=== PATIENT | female | born 1985 | race Caucasian/White ===

== ENCOUNTER 2018-08-17 11:51 | Emergency (ER) | payer OTHER ==
[~2018-08-17] VITALS: Ht 172.7 cm; Wt 144.2 kg
[~2018-08-17 11:51] MED LIST: ACETAMINOPHEN-1 EAC1 PO; AMITRIPTYLINE H10 M1 PO; AMOXICILLIN500 M1 PO; AMOXIL 875 MG875 M1 PO; AUGMENTIN 875875 MG PO; CLEOCIN HCL300 MG PO; CYMBALTA20 MG PO; IBUPROFEN 800800 M1 PO; NOHOMEMEDICATIONS; OXYCODONE HCL5 MG PO; PERCOCET 5-3251 EACH PO; TOPAMAX25 M1 PO
[2018-08-17 12:52] LABS: URINE BILIRUBIN NEGATIVE (Negative); URINE BLOOD NEGATIVE (Negative); URINE CLARITY CLEAR; URINE COLOR YELLOW; URINE GLUCOSE-RANDOM NEGATIVE (Negative); URINE KETONES NEGATIVE (Negative); URINE LEUKOCYTES-REFLEX NEGATIVE (Negative); URINE NITRITE-REFLEX NEGATIVE (Negative); URINE PROTEIN NEGATIVE (Negative); URINE SPECIFIC GRAVITY 1.025 (1.005-1.030); URINE UROBILINOGEN 0.2 E.U./dl (0.2-1.0)
[2018-08-17 13:20] LABS: ABSOLUTE BASOPHILS 0.1 thou/uL (0.0-0.2); ABSOLUTE EOSINOPHILS 0.6 thou/uL (0.0-0.7); ABSOLUTE LYMPHOCYTES 2.7 thou/uL (0.8-5.3); ABSOLUTE MONOCYTES 0.6 thou/uL (0.0-1.2); ABSOLUTE NEUTROPHILS 6.3 thou/uL (1.6-8.1); BASOPHILS 1.3 %; EOSINOPHILS 5.9 %; HEMATOCRIT 38.7 % (37.0-47.0); HEMOGLOBIN 12.8 gm/dL (12.0-15.0); LYMPHOCYTES 26.2 %; MCH 27.1 pg (26.0-34.0); MCHC 33.2 g/dL (28.0-37.0); MCV 81.7 fL (80.0-100.0); MONOCYTES 5.5 %; MPV 9.1 fl. (7.2-11.1); NUCLEATED RBCS 0 /100WBC; PLATELET COUNT* 176 thou/uL (150-400); POLYS 61.1 %; RBC 4.73 mil/uL (4.20-5.00); RDW-CV 16.4 % (10.5-14.5); WBC 10.4 thou/uL (4.0-11.0)
[2018-08-17 13:26] LABS: CALCIUM 8.4 mg/dL (8.5-10.1); CREATININE 0.7 mg/dL (0.6-1.3); POTASSIUM 3.7 mmol/L (3.5-5.1)
[2018-08-17 13:28] LABS: INR 0.9; PROTIME 9.5 Seconds (9.20-11.50)
[2018-08-17 13:31] LABS: ALBUMIN 2.8 g/dL (3.4-5.0); TOTAL BILIRUBIN 0.2 mg/dL (<0.1-1.0); TOTAL PROTEIN 7.2 g/dL (6.4-8.2)
[2018-08-17 16:09] VITALS: BP 105/62
[2018-08-17 16:57] LABS: CSF GLUCOSE 62 mg/dl (40-70); CSF PROTEIN 46.8 mg/dl (15-45)
[2018-08-17 17:28] LABS: VOLUME 13 ml
[2018-08-17 18:01] LABS: CSF CLARITY CLEAR; CSF COLOR COLORLESS
[2018-08-17 18:02] LABS: CSF RBC 317 /mm3; CSF WBC 4 /mm3 (0-10)
== END 2018-08-17 16:12 | disposition left against medical advice (07) ==
LOC: M.ERS 11:51
PROVIDERS: Personal Emergency Response Attendant
DX: R51 Headache (principal); F41.9 Anxiety disorder, unspecified; F31.9 Bipolar disorder, unspecified; E03.9 Hypothyroidism, unspecified; G89.29 Other chronic pain; M54.9 Dorsalgia, unspecified; J45.909 Unspecified asthma, uncomplicated; I10 Essential (primary) hypertension; F17.210 Nicotine dependence, cigarettes, uncomplicated; Z88.5 Allergy status to narcotic agent; Z88.6 Allergy status to analgesic agent; Z88.8 Allergy status to other drugs, medicaments and biological substances

== ENCOUNTER 2018-09-09 19:07 | Emergency (ER) | payer OTHER ==
[~2018-09-09] VITALS: Ht 172.7 cm; Wt 131.5 kg
[2018-09-09 19:56] LABS: ABSOLUTE EOSINOPHILS 0.5 thou/uL (0.0-0.7); ABSOLUTE LYMPHOCYTES 3.5 thou/uL (0.8-5.3); ABSOLUTE MONOCYTES 0.5 thou/uL (0.0-1.2); ABSOLUTE NEUTROPHILS 8.1 thou/uL (1.6-8.1); BASOPHILS 0.2 %; EOSINOPHILS 4.1 %; HEMATOCRIT 40.9 % (37.0-47.0); HEMOGLOBIN 13.4 gm/dL (12.0-15.0); LYMPHOCYTES 27.4 %; MCH 26.7 pg (26.0-34.0); MCHC 32.7 g/dL (28.0-37.0); MCV 81.7 fL (80.0-100.0); MONOCYTES 4.2 %; MPV 9.1 fl. (7.2-11.1); NUCLEATED RBCS 0 /100WBC; PLATELET COUNT* 220 thou/uL (150-400); POLYS 64.1 %; RBC 5.01 mil/uL (4.20-5.00); RDW-CV 16.3 % (10.5-14.5); WBC 12.7 thou/uL (4.0-11.0)
[2018-09-09 20:04] LABS: CREATININE 0.8 mg/dL (0.6-1.3); POTASSIUM 3.5 mmol/L (3.5-5.1)
[2018-09-09 20:13] LABS: ALBUMIN 3.1 g/dL (3.4-5.0); TOTAL BILIRUBIN 0.1 mg/dL (<0.1-1.0); TOTAL PROTEIN 8.2 g/dL (6.4-8.2)
[2018-09-09 21:41] VITALS: BP 130/85
== END 2018-09-09 21:41 | disposition home or self-care (01) ==
LOC: M.ERS 19:07
PROVIDERS: Personal Emergency Response Attendant
DX: N93.8 Other specified abnormal uterine and vaginal bleeding (principal); F41.9 Anxiety disorder, unspecified; F31.9 Bipolar disorder, unspecified; E03.9 Hypothyroidism, unspecified; J45.909 Unspecified asthma, uncomplicated; I10 Essential (primary) hypertension; Z88.0 Allergy status to penicillin; Z88.6 Allergy status to analgesic agent; Z88.5 Allergy status to narcotic agent; Z88.8 Allergy status to other drugs, medicaments and biological substances

== ENCOUNTER 2018-12-19 21:18 | Emergency (ER) | payer OTHER ==
[~2018-12-19] VITALS: Ht 172.7 cm; Wt 127.0 kg
[2018-12-19 22:35] LABS: AMP/METHAMP Negative (Negative); BARBITURATES Negative (Negative); BENZODIAZEPINES Negative (Negative); COCAINE Negative (Negative); METHADONE Negative (Negative); OPIATES Negative (Negative); PCP Negative (Negative); THC POSITIVE (Negative)
[2018-12-19] MEDS ORDERED: FLEXERIL PO (23:03)
[2018-12-19] MEDS ORDERED: PERCOCET 7.5-31 EACH PO (23:03)
[2018-12-19 23:31] VITALS: BP 116/76
== END 2018-12-19 23:33 | disposition home or self-care (01) ==
LOC: M.ERS 21:18
PROVIDERS: Emergency Medicine
DX: R51 Headache (principal); F17.200 Nicotine dependence, unspecified, uncomplicated; F41.9 Anxiety disorder, unspecified; F31.9 Bipolar disorder, unspecified; E03.9 Hypothyroidism, unspecified; J45.909 Unspecified asthma, uncomplicated; M54.9 Dorsalgia, unspecified; G89.29 Other chronic pain; I10 Essential (primary) hypertension; K50.90 Crohn's disease, unspecified, without complications; Z88.6 Allergy status to analgesic agent; Z88.8 Allergy status to other drugs, medicaments and biological substances; Z88.0 Allergy status to penicillin

== ENCOUNTER 2019-09-16 23:14 | Emergency (ER) | payer MEDICAID ==
[~2019-09-16] VITALS: Ht 172.7 cm; Wt 149.7 kg
[~2019-09-16 23:14] MED LIST changes: +FLEXERIL PO; +PERCOCET 7.5-31 EACH PO
[2019-09-17] MEDS ORDERED: AMOXICILLIN 50500 M1 PO (00:08)
[2019-09-17 00:21] VITALS: BP 125/70
== END 2019-09-17 00:21 | disposition home or self-care (01) ==
LOC: M.ERS 23:14
DX: K02.9 Dental caries, unspecified (principal); F41.9 Anxiety disorder, unspecified; F31.9 Bipolar disorder, unspecified; G89.29 Other chronic pain; J45.909 Unspecified asthma, uncomplicated; E03.9 Hypothyroidism, unspecified; Z88.5 Allergy status to narcotic agent; Z88.6 Allergy status to analgesic agent; Z88.8 Allergy status to other drugs, medicaments and biological substances

== ENCOUNTER 2020-02-02 10:31 | Emergency (ER) | payer MEDICAID ==
[~2020-02-02] VITALS: Ht 172.7 cm; Wt 145.2 kg
[~2020-02-02 10:31] MED LIST changes: +AMOXICILLIN 50500 M1 PO
[2020-02-02 10:55] VITALS: BP 121/58
[2020-02-02] MEDS ORDERED: PERIDEX 0.12%473 M1 SWISH&SPIT (11:07)
[2020-02-02] MEDS ORDERED: AMOXICILLIN 50500 MG PO (11:07)
[2020-02-02] MEDS ORDERED: LIDOCAINE VISC100 ML SWISH&SPIT (11:07)
[2020-02-02] MEDS ORDERED: APAP W/CODEINE1 TA2 PO (11:07)
== END 2020-02-02 11:15 | disposition home or self-care (01) ==
LOC: M.ERS 10:31
DX: K04.7 Periapical abscess without sinus (principal); E03.9 Hypothyroidism, unspecified; J45.909 Unspecified asthma, uncomplicated; I10 Essential (primary) hypertension; K50.90 Crohn's disease, unspecified, without complications; Z88.6 Allergy status to analgesic agent; Z88.8 Allergy status to other drugs, medicaments and biological substances

== ENCOUNTER 2021-03-07 14:49 | Emergency (ER) | payer MEDICAID ==
[~2021-03-07] VITALS: Ht 172.7 cm; Wt 145.2 kg
[~2021-03-07 14:49] MED LIST changes: +AMOXICILLIN 50500 MG PO; +APAP W/CODEINE1 TA2 PO; +LIDOCAINE VISC100 ML SWISH&SPIT; +PERIDEX 0.12%473 M1 SWISH&SPIT
[2021-03-07 17:35] VITALS: BP 140/95
== END 2021-03-07 17:39 | disposition left against medical advice (07) ==
LOC: M.ERS 14:49
DX: R51.9 Headache, unspecified (principal); H53.8 Other visual disturbances; R11.0 Nausea; F41.9 Anxiety disorder, unspecified; F31.9 Bipolar disorder, unspecified; E03.9 Hypothyroidism, unspecified; J45.909 Unspecified asthma, uncomplicated; E66.01 Morbid (severe) obesity due to excess calories; F17.210 Nicotine dependence, cigarettes, uncomplicated; Z88.8 Allergy status to other drugs, medicaments and biological substances; Z88.0 Allergy status to penicillin; Z88.6 Allergy status to analgesic agent; Z68.42 Body mass index [BMI] 45.0-49.9, adult